=== PATIENT | male | born 1945 | race Caucasian/White ===

== ENCOUNTER → 2018-07-30 14:33 | Outpatient (BNVA) | payer MEDICARE, OTHER, SELFPAY | PROVIDERS: PCP Internal Medicine; Referring Provider Internal Medicine; Visit Provider Orthopaedic Surgery | DX: M25.551 Pain in right hip (principal) | CPT/HCPCS: 20610; 99211; 99213; J1040 ==

== ENCOUNTER 2018-11-06 11:14 | Outpatient (CLI) | payer MEDICARE, OTHER, SELFPAY ==
--- NOTE | 2018-11-06 10:00 | DI.RAD_ITS ---
SYMPTOM/DIAGNOSIS: ACUTE RT HIP PAIN AP PELVIS: No priors. No acute fracture or dislocation is seen. There are mild to moderate degenerative changes seen in the lower lumbar spine. The sacroiliac joints show mild degenerative changes. The symphysis pubis is intact. Mild degenerative changes are seen in the hips bilaterally. The soft tissues are grossly unremarkable. IMPRESSION: No acute fracture or dislocation.
== END 2018-11-06 11:34 ==
PROVIDERS: PCP Internal Medicine; Visit Provider Orthopaedic Surgery
DX: M25.551 Pain in right hip (principal); M16.0 Bilateral primary osteoarthritis of hip
CPT/HCPCS: 72170

== ENCOUNTER → 2018-11-08 08:34 | Outpatient (BNVA) | payer MEDICARE, OTHER, SELFPAY | PROVIDERS: PCP Internal Medicine; Referring Provider Internal Medicine; Visit Provider Orthopaedic Surgery | DX: M25.551 Pain in right hip (principal) | CPT/HCPCS: 99211; 99213 ==

== ENCOUNTER 2018-11-14 00:42 | Outpatient (CLI) | payer MEDICARE, OTHER, SELFPAY ==
--- NOTE | 2018-11-14 06:51 | DI.RAD_ITS ---
SYMPTOMS/DIAGNOSIS: RIGHT HIP PAIN, DEGENERATIVE JOINT DISEASE OF RIGHT HIP, M16.11, PRIMARY OSTEOARTHRITIS RIGHT HIP INJECTION: Fluoroscopy Time: 1.2 sec Fluoroscopy was utilized by Dr. Jones during the performance of a right hip injection. Please refer to the procedure report for complete details.
--- NOTE | 2018-11-14 10:06 | ROE_ITS ---
PROCEDURE NOTE DATE OF PROCEDURE November 14, 2018 PROCEDURE PERFORMED Injection right hip under fluoroscopy. SURGEON Epifanio Jones M.D. INDICATIONS Mr. Mckeon has had pain in his right hip and groin for the past several months. It began insidiously in July of 2018 with no history of trauma. After three to four weeks, he came to see me and he had s elf-diagnosed the problem as trochanteric bursitis. His exam was not compatible with that, but I trie d an injection in his trochanteric bursa without much benefit. His symptoms gradually got better on t heir own, and he was doing well playing tennis and gardening until approximately eight days ago, when he developed the same onset of symptoms after getting up while watching tennis on television and goi ng out into his garden. Again, there was no history of trauma. He was seen in the office a week ago and had an x-ray done approximately eight days ago, which did no t show any obvious pathology with either hip joint. There was also some evidence of degenerative disk disease of the lumbar spine, especially on the right side. His exam was compatible with possible int raarticular pathology of the right hip, but I felt more likely, it was related to some type of nerve root compression on his spine. However, his exam including straight leg raises, and neurologic testin g of the motor and sensory units of the right lower extremity were unremarkable. Today, he reports that he does have some tingling in his lower leg to the point where he thought he m ight have ticks crawling up his leg, and that was not the case. He has not really improved in the last week. I had discussed with him the possibility of injecting in to his hip under fluoroscopy to verify or not, that the hip joint was the source of his pathology. I explained to him the rationale for this. After he thought about it for few days, he decided to procee d with that. DESCRIPTION OF PROCEDURE The patient was brought to the Fluoroscopy Suite. I reviewed the planned procedure with him. He was p laced on the fluoroscopic table. The anterolateral portion of his right thigh was then prepped with C hloraPrep. 1% lidocaine was then used to create an anesthetic wheal with a #25-guage needle over the proposed insertion site of spinal needle. After waiting a few minutes for the lidocaine to work, I then placed a #22-guage spinal needle, under fluoroscopic control past the intertrochanteric line hitting a bone over the femoral neck. I then in jected the hip joint with a combination of 80 mg of Depo-Medrol and 6 cc of 0.5% Marcaine plain. The patient tolerated the injection well. He did not notice any immediate change in his symptoms. He still complained of some groin pain. Lying on his left side, which was causing him pain in the right groin, before the procedure was somewhat b manda, however, there was no dramatic change in his presymptom groin pain. I told him to keep a mental diary of his symptoms over the next five to six hours while the Marcaine was in effect. He could then anticipate a possible steroid flare and increasing pain over 24 to 48 ho urs and then should notice improvement because of the beneficial effect of the steroid. His hip motion remained unrestricted. I had him do a step up on a stair, which did not seem to bother him either before or after the injection. But, he felt that he was feeling some groin pain in that h e had to sit even after the injection. This tended to indicate to me that the problem might be coming from the lumbar spine rather than the hip joint. PLAN He will contact me in 48 hours and let me know how he is doing. The next part in the examination woul d be an MRI of his lumbar spine and his hip joint.
== END 2018-11-14 01:02 ==
PROVIDERS: PCP Internal Medicine; Visit Provider Orthopaedic Surgery
DX: M16.11 Unilateral primary osteoarthritis, right hip (principal); M25.551 Pain in right hip
CPT/HCPCS: 20610; 77002

== ENCOUNTER 2018-11-23 02:25 | Outpatient (CLI) | payer MEDICARE, OTHER, SELFPAY ==
--- NOTE | 2018-11-23 07:56 | DI.MRI_ITS ---
SYMPTOM/DIAGNOSIS: R/O NERVE ROOT COMPRESSION M25.551 RT HIP PAIN M54.5 LBP MRI LUMBAR SPINE: Routine noncontrast examination was performed. No priors for comparison. The conus medullaris has a normal appearance and location. At L5-S1, there is disc desiccation. There is a central disc protrusion. There are hypertrophic changes of the facets. There is mild narrowing of the central spinal canal. Moderately severe left neuroforaminal stenosis is seen. No significant white neural foraminal stenosis is present. At L4-L5, there is disc desiccation. End plate degenerative signal changes are present. There is a diffuse protrusion present. There are hypertrophic changes of the facets and ligamentum flavum causing moderately severe central canal stenosis. There is moderately severe right neural foraminal stenosis and moderate left neuroforaminal stenosis. At L3-L4, there is disc desiccation. There are degenerative end plate signal changes. There is a diffuse disc bulge. There is a small right paracentral disc herniation. There are hypertrophic changes of the facets. The findings result in moderately severe central spinal canal stenosis. There is moderately severe right neuroforaminal stenosis and moderate left neuroforaminal stenosis. At L2-L3, there is disc desiccation. There are end plate degenerative signal changes. There is a diffuse disc bulge. There are degenerative changes of the facets resulting in mild narrowing of the central spinal canal. There is mild narrowing of the right neural foramen and moderate narrowing of the left neural foramen. At L1-L2, there is disc desiccation. End plate degenerative signal changes are present. There is a diffuse disc bulge. Mild narrowing of the central spinal canal results. No significant right or left neuroforaminal stenosis is present. Incidental note is made of a 1.3 cm simple cyst on the right ovary. IMPRESSION: Severe degenerative changes throughout the lumbar spine resulting in multi-level central spinal canal and neuroforaminal stenosis. Small right paracentral disc herniation at L3-L4. This in conjunction with the degenerative changes causes central spinal canal stenosis.
--- NOTE | 2018-11-23 07:56 | DI.MRI_ITS ---
SYMPTOM/DIAGNOSIS: RIGHT HIP PAIN M25.551 MRI RIGHT HIP: Routine noncontrast examination was performed. Marrow signal is within normal limits. No evidence of an occult fracture or avascular necrosis is present. The labrum appears grossly unremarkable on this noncontrast examination. The muscles and tendons appear grossly unremarkable. No evidence of a soft tissue mass or foal fluid collection is appreciated. Normal amount of fluid is seen within the joint space. IMPRESSION: No acute abnormality.
== END 2018-11-23 02:45 ==
PROVIDERS: PCP Internal Medicine; Visit Provider Orthopaedic Surgery
DX: M25.551 Pain in right hip (principal); M54.5 Low back pain; M51.26 Other intervertebral disc displacement, lumbar region; M47.816 Spondylosis without myelopathy or radiculopathy, lumbar region; M48.061 Spinal stenosis, lumbar region without neurogenic claudication
CPT/HCPCS: 73721; 72148

== ENCOUNTER → 2018-11-29 08:54 | Outpatient (BNVA) | payer MEDICARE, OTHER, SELFPAY | PROVIDERS: PCP Internal Medicine; Referring Provider Internal Medicine; Visit Provider Orthopaedic Surgery | DX: M48.062 Spinal stenosis, lumbar region with neurogenic claudication (principal); Z98.890 Other specified postprocedural states | CPT/HCPCS: 99212 ==

== ENCOUNTER → 2018-11-30 13:59 | Outpatient (BNVA) | payer MEDICARE, OTHER, SELFPAY | PROVIDERS: PCP Internal Medicine; Visit Provider Internal Medicine Cardiovascular Disease | DX: I48.0 Paroxysmal atrial fibrillation (principal) | CPT/HCPCS: 99214 ==

== ENCOUNTER 2018-11-30 14:12 | Outpatient (CLI) | payer MEDICARE, OTHER, SELFPAY | END 2018-11-30 14:32 | PROVIDERS: PCP Internal Medicine; Visit Provider Internal Medicine Cardiovascular Disease | DX: I48.0 Paroxysmal atrial fibrillation (principal) | CPT/HCPCS: 99214; 93005; 93010 ==

== ENCOUNTER 2018-12-21 09:37 | Outpatient (CLI) | payer MEDICARE, OTHER, SELFPAY | END 2018-12-21 09:57 | PROVIDERS: PCP Internal Medicine; Visit Provider Internal Medicine Cardiovascular Disease | DX: I48.0 Paroxysmal atrial fibrillation (principal); Z79.01 Long term (current) use of anticoagulants | CPT/HCPCS: 99214; 93005; 93010 ==

== ENCOUNTER 2019-01-11 07:53 | Day surgery (SDC) | payer MEDICARE, OTHER, SELFPAY ==
[2019-01-11 08:00] VITALS: BP 120/79; PULSE 79; RESP 16; TEMP 36.3; O2SAT 97
[2019-01-11] MEDS: Normal Saline 1,000 ML 30 ML IV (08:35)
--- NOTE | 2019-01-11 09:49 | W.CARDVER ---
Date of service: 01/11/19 Time of Service: 09:49 Cardioversion Elective admission for electrical cardioversion. Known atrial fibrillation. Preprocedure EKG reveals atrial fibrillation with a ventricular rate of 80 bpm. Patient adequately anticoagulated. Informed consent obtained. Patient hemodynamically monitored throughout procedure. Anesthesia and nursing present. Sedation as per anesthesia. Cardioversion pads placed in the dolly-posterior orientation. 200 J synchronized cardioversion. Remains in A. fib after the first attempt. Second attempt. Unsuccessful. Patient remains in atrial fibrillation. No complications. We will get a 12-lead EKG. Patient to continue diltiazem and metoprolol as prescribed. Continue anticoagulation for 30 days. To be reviewed in the clinic in 4 weeks time.
[2019-01-11 10:05] VITALS: BP 107/78; PULSE 72; RESP 16; TEMP 36.4; O2SAT 95
[2019-01-11 10:20] VITALS: BP 116/85; PULSE 75; RESP 16; TEMP 36.4; O2SAT 95
[2019-01-11 10:35] VITALS: BP 116/81; PULSE 74; RESP 16; TEMP 36.3; O2SAT 96
== END 2019-01-11 10:55 | disposition home or self-care (01) ==
PROVIDERS: PCP Internal Medicine; Visit Provider Internal Medicine Cardiovascular Disease
PROC: 5A2204Z Restoration of Cardiac Rhythm, Single (ICD-10-PCS; CPT 92960; principal; 2019-01-11 09:30)
DX: I48.91 Unspecified atrial fibrillation (principal)
CPT/HCPCS: 92960

== ENCOUNTER 2019-02-07 09:02 | Outpatient (CLI) | payer MEDICARE, OTHER, SELFPAY | END 2019-02-07 09:22 | PROVIDERS: PCP Internal Medicine; Visit Provider Internal Medicine Cardiovascular Disease | DX: I48.19 Other persistent atrial fibrillation (principal); Z79.01 Long term (current) use of anticoagulants | CPT/HCPCS: 99204; 99215; 93005; 93010 ==

== ENCOUNTER 2019-03-04 01:13 | Outpatient (CLI) | payer MEDICARE, OTHER, SELFPAY ==
--- NOTE | 2019-03-04 13:58 | DI.US_ITS ---
APPROVED REPORT EXAM: Comprehensive 2D, Doppler, and color-flow Echocardiogram Patient Location: Out-Patient Online Media Buyer: Lena Calderon [facility] ([place]) Rhythm: Atrial Fibrillation, Tachycardia Indications: atrial fibrillation i48.0 Conclusion Left Ventricle : The left ventricle is normal size. The left ventricular systolic function is normal. Mild to moderate concentric left ventricular hypertrophy. There is normal LV segmental wall motion. LVEF is estimated to be 60-65%. Diastolic function is indeterminate Right Ventricle : Right ventricle is mildly dilated. The right ventricular systolic function is low n ormal. Atria : Left atrium is moderately dilated. Right atrium is moderately dilated. Aortic Valve : Aortic valve is trileaflet. The Aortic valve is mildly sclerotic. There is no aortic v alvular stenosis. No aortic regurgitation is present. Mitral Valve : Mitral valve leaflets are mildly thickened. No evidence of mitral valve stenosis. Trac e to mild mitral regurgitation. Tricuspid Valve : The tricuspid valve leaflets are mildly thickened , but open well. Mild tricuspid regurgitation. Pulmonic Valve : Pulmonic valve is not well visualized. Great Vessels : The IVC is dilated and collapses >50% with inspiration. RVSP is estimated to be 18-2 1 mmHg. There is no prior echocardiogram available for comparison. Wall motion Left Ventricle The left ventricle is normal size. The left ventricular systolic function is normal. Mild to moderate concentric left ventricular hypertrophy. There is normal LV segmental wall motion. Diastolic functio n is indeterminate LVEF is estimated to be 60-65%. Right Ventricle Right ventricle is mildly dilated. The right ventricular systolic function is low normal. Atria Left atrium is moderately dilated. Right atrium is moderately dilated. Aortic Valve Aortic valve is trileaflet. The Aortic valve is mildly sclerotic. There is no aortic valvular stenosi s. No aortic regurgitation is present. Mitral Valve Mitral valve leaflets are mildly thickened. No evidence of mitral valve stenosis. Trace to mild nathen l regurgitation. Tricuspid Valve The tricuspid valve leaflets are mildly thickened , but open well. Mild tricuspid regurgitation. Pulmonic Valve Pulmonic valve is not well visualized. Mild pulmonic regurgitation. Great Vessels Aortic root is dilated. The ascending aorta is mildly dilated. The IVC is dilated and collapses >50% with inspiration. RVSP is estimated to be 18-21 mmHg. Pericardium There is no pericardial effusion. 2D Dimensions IVSd 1.35 cm M: 0.6-1.2 LV EDV A2C 77.10 mL PWd 1.34 cm M: 0.6 - 1.2 LV EDV A4C 82.40 mL LVDd 4.57 cm M: 4.2 - 5.9 LA Volume Index A2C 40.59 mL/m2 LVDs 3.34 cm M: 2.5 - 4.0 LA Volume Index A4C 59.21 mL/m2 Aortic Root 3.76 cm M: 3.1 - 3.7 LA Volume Index Biplane 50.70 mL/m2 RA Area A4C 28.10 cm2 LA Area A4C 30.77 cm2 LVOT 2.23 cm (M/F) 1.5-2.5 LA Area A2C 24.64 cm2 Ascending Aorta 3.59 cm M: 2.6 - 3.4 EF AP4 64.56 % LVEF (Teich) 52.68 % EF AP2 62.65 % LVEF (Oconnor's) 62.34 % M: 52 - 72 EF BP 62.34 % LV Volume 61.70 mL M: 62 - 150 LV Volume Index 30.54 mL/m2 M: 34 - 74 FS 26.97 % LV Diastology E Decel Time 123.00 (160-240 msec) MED E' 0.08 (>0.07 m/s) LV E/e MED 8.20 (<14) LAT E' 0.09 (>0.1 m/s) LV E/e LAT 7.24 (<14) Aortic Valve LVOT Area 3.91 cm2 LVOT Peak Ravindra. 0.65 m/s LVOT Mean Ravindra. 0.49 m/s LVOT Peak Gr. 1.69 mmHg ZANA Vmax Index 1.52 cm2/m2 LVOT Mean Gr. 1.09 mmHg LVOT VTI 0.11 m ZANA Mean Ravindra. Index 1.38 cm2/m2 AoV Peak Ravindra. 0.83 (0.5-1.3 m/s) AoV Mean Ravindra. 0.69 m/s AO Peak GR. 2.74 mmHg AO Mean GR. 1.97 (<5 mmHg) AO VTI 0.14 (0.18-0.25 m) VTI Ratio 0.77 ZANA (VTI) 3.03 (2.5-4.5 cm2) ZANA (VTI) Index 1.50 cm/m2 Mitral Valve MV E Max Ravindra. 0.67 (0.4-1.3 m/s) MVA VTI 6.80 (4.0-6.0 cm2) MV Decel. Time 123.00 (160-240 msec) MV PHT 35.53 msec MVA PHT 6.19 cm2 Tricuspid Valve TR P. Velocity 2.17 m/s TV Regurg Vmax 2.17 m/s RVSP 26.82 mmHg TR P. Gradient 18.82 mmHg
== END 2019-03-04 01:33 ==
PROVIDERS: PCP Internal Medicine; Visit Provider Internal Medicine Cardiovascular Disease
DX: I48.0 Paroxysmal atrial fibrillation (principal); I51.7 Cardiomegaly; I35.8 Other nonrheumatic aortic valve disorders
CPT/HCPCS: 93306

== ENCOUNTER → 2019-05-06 13:12 | Outpatient (BNVA) | payer MEDICARE, OTHER, SELFPAY | PROVIDERS: PCP Internal Medicine; Referring Provider Internal Medicine; Visit Provider Internal Medicine Cardiovascular Disease | DX: I48.20 Chronic atrial fibrillation, unspecified (principal) | CPT/HCPCS: 99214 ==

== ENCOUNTER → 2019-10-01 12:41 | Outpatient (BNVA) | payer MEDICARE, OTHER, SELFPAY | PROVIDERS: PCP Internal Medicine; Referring Provider Internal Medicine; Visit Provider Internal Medicine Cardiovascular Disease | DX: I48.91 Unspecified atrial fibrillation (principal) | CPT/HCPCS: 99214 ==

== ENCOUNTER 2019-12-04 16:31 | Emergency (ER) | payer MEDICARE, OTHER, SELFPAY ==
[2019-12-04 16:39] VITALS: BP 152/98; PULSE 97; TEMP 37; O2SAT 97
--- NOTE | 2019-12-04 17:43 | W.ED.GENAD ---
Discharge Plan Disposition Patient Disposition: HOME Condition: Stable Discharge Details Chief Complaint: Laceration Clinical Impression: Cellulitis Primary Care Provider: Jitendra Whitfield ED Provider: Anton Ramos Home Meds and New Rx's Prescriptions: New cephalexin [Keflex] 500 mg capsule 500 mg PO QID 10 Days Qty: 40 RF: 0 Continued sildenafil [Viagra] 50 mg tablet 50 mg PO DAILY PRN (Reason: sexual activity) Qty: 10 RF: 3 diltiazem HCl 360 mg capsule,extended release 24hr 360 mg PO DAILY 90 Days Qty: 90 RF: 3 Eliquis 5 mg tablet 5 mg PO BID 30 Days Qty: 180 RF: 6 metoprolol succinate 50 mg tablet extended release 24 hr 50 mg PO DAILY 30 Days Qty: 90 RF: 6 mesalamine [Asacol HD] 800 mg tablet,delayed release (DR/EC) 800 mg PO .6XPER DAY RF: 0 Discharge Instructions Instructions: Cellulitis (ED) Additional Instructions: Keflex as directed. Rest, elevate, warm compresses every 2 hours for 20 minutes. Keep the area clean and dry, change antibiotic dressing daily. Please watch for new or worsening symptoms and return to the ER for any concerns. Medical Decision Making 73-year-old gentleman presents after hitting his right lower extremity with a stick, now the area appears to be infected. Today we will update his tetanus status. Will clean and dress the wound. Given the nature of a potential puncture, will obtain x-ray to evaluate any potential foreign body and/or additional injury. X-ray read by virtual radiology as no acute fracture or dislocation. Soft tissue emphysema medially this is likely related to the patient's known trauma. Findings with patient. He has no additional questions or concerns and is comfortable discharge. Will place him on 10 days of Keflex. We discussed the importance of keeping the area clean, dry, changing antibiotic dressing, resting, elevating and warm compresses. He was encouraged to follow-up with his primary care provider, contacting them tomorrow, or returning to the ER for new or evolving symptoms. Medical Records Medical records reviewed: Yes I reviewed the patient's medical records. HPI General Mode of arrival: ambulatory. Date/Time Provider Initiated Documentation: 12/04/19 16:44. Limitations to Documentation: no limitations. Information obtained by: patient. HPI Narrative: This is a 73-year-old gentleman with history of atrial fibrillation, takes apixaban, history of ulcerative colitis, presenting for evaluation of the right lower leg injury. Reports that he was out doing yard work, walked into a stick and it poked his right leg sustaining a small abrasion-laceration. Over the past 2 days the area has become increasingly red, mild swelling and drainage. He denies any other injury. Denies fever, numbness, tingling, weakness. Tetanus was last updated in 2013. Related Data Home Medications Medication Instructions Recorded Confirmed sildenafil 50 mg tablet 50 mg PO DAILY PRN #10 tab 11/30/18 12/04/19 apixaban 5 mg tablet 5 mg PO BID 30 Days #180 tab 05/23/19 12/04/19 diltiazem HCl 360 mg 360 mg PO DAILY 90 Days #90 cap 05/23/19 12/04/19 capsule,extended release 24 hr metoprolol succinate 50 mg 50 mg PO DAILY 30 Days #90 tab 05/23/19 12/04/19 tablet,extended release 24 hr mesalamine 800 mg tablet,delayed 800 mg PO .6XPER DAY 10/01/19 12/04/19 release cephalexin [Keflex] 500 mg PO QID 10 Days #40 cap 12/04/19 Previous Rx's Medication Instructions Recorded sildenafil 50 mg tablet 50 mg PO DAILY PRN #10 tab 11/30/18 apixaban 5 mg tablet 5 mg PO BID 30 Days #180 tab 05/23/19 diltiazem HCl 360 mg 360 mg PO DAILY 90 Days #90 cap 05/23/19 capsule,extended release 24 hr metoprolol succinate 50 mg 50 mg PO DAILY 30 Days #90 tab 05/23/19 tablet,extended release 24 hr cephalexin [Keflex] 500 mg PO QID 10 Days #40 cap 12/04/19 Allergies Allergy/AdvReac Type Severity Reaction Status Date / Time No Known Allergies Allergy Verified 12/04/19 17:00 General Stated Complaint: Laceration LANDON: 4 Review of Systems Constitutional Constitutional: Denies fever(s) and Denies weakness Musculoskeletal Musculoskeletal: Denies arthralgias, Denies numbness and Denies tingling Integumentary/Breasts Skin/Breast: Reports erythema Neurologic Neurologic: Denies numbness, Denies tingling and Denies weakness [facility] Medical History Atrial fibrillation (Chronic) Ulcerative colitis (Chronic) Surgical History History of colonoscopy (Chronic) History of shoulder surgery (Chronic) Family History Other Cancer Heart disease Hypertension Social History Smoking/Tobacco Use Status: Never Drug use: Never Substance use type: does not use Do you feel safe at home: Yes Do you feel safe in your relationship?: Yes Exam Const General: cooperative, healthy appearing, comfortable and no acute distress Orientation: alert and awake HENFL Head: normal to inspection, normocephalic and atraumatic Eyes Conjunctivae: conjunctivae normal Sclera: sclerae normal Neck Neck: normal visual inspection, trachea midline and supple Resp Effort & Inspection: normal respiratory effort and able to speak in complete sentences Skin General skin exam: no rashes or lesions noted Neuro General: patient alert, patient awake, moves all extremities and no focal motor deficits Sensory Exam: no sensory deficits noted Extrem General: full ROM, capillary refill normal, no pedal edema, no calf tenderness and normal gait Upper/lower leg/hip images: 1. Centrally there is a 0.5 cm [id number]. Expanding in all directions approximately 2-1/2 cm, there is macular erythema. The area is with mild warmth, tenderness to palpation. There is no induration, fluctuance, pointing abscess, or active draining. The erythema is noncircumferential. Psych Appearance: grossly normal Mental Status: mental status grossly normal Course Vital Signs Vital signs: Vital Signs Temperature 37.0 C 12/04/19 16:39 Pulse 97 H 12/04/19 16:39 Blood Pressure 152/98 H 12/04/19 16:39 Pulse Oximetry 97 12/04/19 16:39 Temperature 37.0 C 12/04/19 16:39 Temperature Source Tympanic 12/04/19 16:39 Pulse 97 H 12/04/19 16:39 Respiratory Effort 12/04/19 16:58 Blood Pressure 152/98 H 12/04/19 16:39 Blood Pressure Position Sitting 12/04/19 16:39 Pulse Oximetry 97 12/04/19 16:39 Oxygen Delivery Method Room Air 12/04/19 16:39 Oxygen Flow Rate 0 12/04/19 16:39 Pain Level 0 12/04/19 16:39
--- NOTE | 2019-12-04 17:50 | DI.RAD_ITS ---
EXAM: XR TIB/FIB RT CLINICAL HISTORY: Laceration-puncture wound 2 days ago, cellulitis. TECHNIQUE: 2D digital imaging was performed. COMPARISON: No exams were available for comparison FINDINGS: BONES: No acute fracture is present. No bony destructive lesion is seen. Visualized portion of knee a nd ankle joints are unremarkable. SOFT TISSUE: No radiopaque foreign body. A BB was placed in the area of concern. IMPRESSION: No radiopaque foreign body, fracture or dislocation. DATA REPOSITORY: RADIATION DOSE DELIVERED:
--- NOTE | 2019-12-04 17:56 | DI.VRAD_ITS ---
PROCEDURE INFORMATION: Exam: XR Right Tibia and Fibula Exam date and time: 12/04/2019 5:46 PM Age: 73 years old Clinical indication: Injury or trauma; Injury history: Puncture wound; Initial encounter; Swelling (edema); Lower leg; Right TECHNIQUE: Imaging protocol: XR Right tibia and fibula. Views: 2 views. COMPARISON: No relevant prior studies available. FINDINGS: Bones/joints: No acute fracture or dislocation. Soft tissues: Soft tissue emphysema medially. This is likely related to the patient's known trauma. IMPRESSION: No acute fracture or dislocation. Soft tissue emphysema likely related to the trauma. Dictated and Authenticated by: Harman Parekh MD. Ordering:CARLOS Walton MD
== END 2019-12-04 18:09 | disposition home or self-care (01) ==
PROVIDERS: Emergency Provider Physician Assistant; PCP Internal Medicine
DX: L03.115 Cellulitis of right lower limb (principal); S81.831A Puncture wound without foreign body, right lower leg, initial encounter; W26.8XXA Contact with other sharp object(s), not elsewhere classified, initial encounter; Y93.H2 Activity, gardening and landscaping; I48.0 Paroxysmal atrial fibrillation; Z79.01 Long term (current) use of anticoagulants
CPT/HCPCS: 90471; 99284; 73590; 99283

== ENCOUNTER 2020-01-04 08:58 | Emergency (ER) | payer MEDICARE, OTHER, SELFPAY ==
[2020-01-04 09:04] VITALS: BP 123/79; PULSE 82; RESP 20; TEMP 36.4; O2SAT 97
--- NOTE | 2020-01-04 09:31 | ED.GENADUL_ITS ---
Discharge Plan Disposition Patient Disposition: HOME Condition: Good Discharge Details Clinical Impression: Abrasion of cornea, left Primary Care Provider: Jitendra Whitfield ED Provider: Dillon Johns Home Meds and New Rx's Prescriptions: Continued sildenafil [Viagra] 50 mg tablet 50 mg PO DAILY PRN (Reason: sexual activity) Qty: 10 RF: 3 diltiazem HCl 360 mg capsule,extended release 24hr 360 mg PO DAILY 90 Days Qty: 90 RF: 3 Eliquis 5 mg tablet 5 mg PO BID 30 Days Qty: 180 RF: 6 metoprolol succinate 50 mg tablet extended release 24 hr 50 mg PO DAILY 30 Days Qty: 90 RF: 6 mesalamine [Asacol HD] 800 mg tablet,delayed release (DR/EC) 800 mg PO .6XPER DAY RF: 0 Discharge Instructions Instructions: Corneal Abrasion (ED) Additional Instructions: At this time you have a mild corneal abrasion of your left eye. Please apply the antibiotic ointment erythromycin 3 times per day and a thin strip. At this time I do not see any evidence of a retained eyelash or other abnormality under the lids. You have a small nodule in the upper lid on the for the most left side, but this does not appear to be related. Please follow-up closely with the eye doctor Dr. Astudillo. If you notice any worsening of your symptoms, or any new symptoms such as v worsening vision, worsening eye pain, omiting, diarrhea, fever, chills, shortness of breath, chest pain, numbness, weakness, or fainting , please return immediately to the emergency department for reevaluation. As always, it was a pleasure participating in your medical care today. Referrals: [facility] [Outside] Medical Decision Making 74-year-old male with past medical history of atrial fibrillation on Eliquis, hypertension, presents today for evaluation of left eye irritation. Patient states that about 36 to 48 hours ago he developed an irritation in the left eye which she describes as michael/gritty feeling. It is in the 10 o'clock position extending over to the 1 o'clock position from the perspective of the patient. He feels that the pain comes and goes, and is mild in nature. He does not recall any welding, woodworking, or getting any foreign body in his eye. He has been taking his medications well. He denies any pressure sensation in his eye or trauma. No other complaints at this time. No other modifying factors. Physical exam demonstrates a small corneal abrasion, no evidence of retained lash, or other abnormality. Negative Dina sign. The abrasion actually appears to be healing well, with no signs of ulceration. Patient is not a contact lens wear. Will give erythromycin ointment for ease of symptoms, and recommend close follow-up with optometry on an outpatient basis. I have extensively reviewed the treatment plan and discharge instructions with the patient. I have addressed all patient concerns at this time. The patient was made aware of what symptoms to monitor for that would warrant a return to the emergency department. Discussed the plan with the patient, they demonstrate verbal understanding and agreement with our assessment and plan at this time. HPI General Date/Time Provider Initiated Documentation: 01/04/20 09:12 . HPI Narrative: 74-year-old male with past medical history of atrial fibrillation on Eliquis, hypertension, presents today for evaluation of left eye irritation. Patient states that about 36 to 48 hours ago he developed an irritation in the left eye which she describes as michael/gritty feeling. It is in the 10 o'clock position extending over to the 1 o'clock position from the perspective of the patient. He feels that the pain comes and goes, and is mild in nature. He does not recall any welding, woodworking, or getting any foreign body in his eye. He has been taking his medications well. He denies any pressure sensation in his eye or trauma. No other complaints at this time. No other modifying factors. Related Data Home Medications Medication Instructions Recorded Confirmed sildenafil 50 mg tablet 50 mg PO DAILY PRN #10 tab 11/30/18 01/04/20 apixaban 5 mg tablet 5 mg PO BID 30 Days #180 tab 05/23/19 01/04/20 diltiazem HCl 360 mg 360 mg PO DAILY 90 Days #90 cap 05/23/19 01/04/20 capsule,extended release 24 hr metoprolol succinate 50 mg 50 mg PO DAILY 30 Days #90 tab 05/23/19 01/04/20 tablet,extended release 24 hr mesalamine 800 mg tablet,delayed 800 mg PO .6X DAY 10/01/19 01/04/20 release Previous Rx's Medication Instructions Recorded sildenafil 50 mg tablet 50 mg PO DAILY PRN #10 tab 11/30/18 apixaban 5 mg tablet 5 mg PO BID 30 Days #180 tab 05/23/19 diltiazem HCl 360 mg 360 mg PO DAILY 90 Days #90 cap 05/23/19 capsule,extended release 24 hr metoprolol succinate 50 mg 50 mg PO DAILY 30 Days #90 tab 05/23/19 tablet,extended release 24 hr Allergies Allergy/AdvReac Type Severity Reaction Status Date / Time No Known Allergies Allergy Verified 01/04/20 09:06 General Stated Complaint: EyeProblem LANDON: 4 Review of Systems All systems reviewed & are unremarkable except as noted in HPI and below PFSH Medical History Atrial fibrillation Ulcerative colitis Surgical History History of colonoscopy History of shoulder surgery Family History Other Cancer Heart disease Hypertension Social History Smoking/Tobacco Use Status: Never Drug use: Never Substance use type: does not use Do you feel safe at home: Yes Do you feel safe in your relationship?: Yes Exam Narrative Exam Narrative: 1.Const: Well-nourished, Well-developed, appearing stated age 2.Eyes: Left eye: EOMI, PERRL, Peripheral vision intact. No nystagmus. No clinical signs of septal/orbital cellulitis, no significant redness around the eye, no proptosis. No hyphema, no signs of trauma around the eye, no periorbital emphysema. No sluggishness of the pupil. No ophthalmoplegia. No afferent pupillary defect. Fluorescein exam is positive for corneal abrasion in the 10 o'clock position to the patient with a slight irritation line medially towards the 1 o'clock position, negative Dina sign. Visual acuity is without significant difference. Eversion of the lids demonstrates no evidence of retain ed foreign body, lash, or other abnormality. There is no evidence of a very small nodule in the upper lid on the left lateral aspect of the left eye, this does not appear to be related to the corneal abrasion. 3.ENT: Atraumatic external nose and ears. Moist MM. Neck: Symmetric, trachea midline, No thyromegaly. 4.CVS: +S1/S2, No murmurs or gallops. Peripheral pulses 2+ and equal in all extremities. Brisk capillary refill in all extremities. 5.RESP: Unlabored respiratory effort. Clear to auscultation bilaterally. No wheezes rales or rhonchi 6.GI: Soft, Nontender/Nondistended, No hepatosplenomegaly. No guarding or rebound. 7.MSK: Normocephalic/Atraumatic, Extremities w/o deformity or ttp No cyanosis or clubbing, Normal movement of all extremities 8.Skin: Warm, Dry. No rashes or lesions. 9.Neuro: burner shaft II-XII grossly intact. Sensation grossly intact, no focal neurologic deficits. 10.Psych: (AAO) x3. Appropriate mood and affect Course Vital Signs Vital signs: Vital Signs Temperature 36.4 C L 01/04/20 09:04 Pulse 82 01/04/20 09:04 Respiratory Rate 01/04/20 09:04 Blood Pressure 123/79 01/04/20 09:04 Pulse Oximetry 97 01/04/20 09:04 Temperature 36.4 C L 01/04/20 09:04 Temperature Source Skin 01/04/20 09:04 Pulse 82 01/04/20 09:04 Respiratory Rate 01/04/20 09:04 Respiratory Effort Non-Labored 01/04/20 09:07 Blood Pressure 123/79 01/04/20 09:04 Blood Pressure Position Sitting 01/04/20 09:04 Pulse Oximetry 97 01/04/20 09:04 Oxygen Delivery Method Room Air 01/04/20 09:04 Oxygen Flow Rate 0 01/04/20 09:04 Pain Level 1 01/04/20 09:04
[2020-01-04] MEDS: Erythromycin Ophth Oint 3.5 GM TUBE OS (09:35)
[2020-01-04] MEDS: Fluorescein STRIPS 100/BOX 1 MG (09:36)
[2020-01-04] MEDS: Tetracaine 0.5% 4 ML BTL (09:36)
== END 2020-01-04 09:37 | disposition home or self-care (01) ==
PROVIDERS: Emergency Provider Student in an Organized Health Care Education/Training Program; PCP Internal Medicine
DX: S05.02XA Injury of conjunctiva and corneal abrasion without foreign body, left eye, initial encounter (principal); X58.XXXA Exposure to other specified factors, initial encounter; I10 Essential (primary) hypertension
CPT/HCPCS: 99283

== ENCOUNTER 2020-01-27 14:47 | Outpatient (REF) | payer MEDICARE, OTHER, SELFPAY ==
[2020-01-27 21:20] LABS: HCT 49.6 % (40.0-50.0); HGB 16.4 g/dL (13.5-17.5); MCH 31.1 pg (27.0-33.0); MCHC 33.1 % (32.0-36.0); MCV 94.1 fL (80-95); MPV 11.8 fL (8.0-11.0); Platelet Count 166 10^3/uL (130-400); RBC 5.27 10^6/uL (4.36-5.78); RDW 14.1 % (11.8-14.1); RDW-SD 48.7 fL; WBC 7.24 10^3/uL (4.4-10.8)
[2020-01-27 21:47] LABS: ALT 29 U/L (16-63); AST 23 U/L (15-37); Albumin 3.6 g/dL (3.4-5.0); Alkaline Phosphatase 74 U/L (46-116); Anion Gap 5.5 mmol/L (3-11); BUN 15 mg/dL (7-18); Bilirubin, Total 0.5 mg/dL (0.2-1.0); CO2 29.5 mmol/L (21.0-32.0); CREATININE 1.17 mg/dL (0.70-1.30); Calculated LDL 106 mg/dL (<100); Chloride 106 mmol/L (98-107); Cholesterol 202 mg/dL (<200); Glucose 88 mg/dL (74-106); HDL Cholesterol 64 mg/dL (40-60); Potassium 4.2 mmol/L (3.5-5.1); Sodium 141 mmol/L (136-145); Triglyceride 162 mg/dL (<150)
== END 2020-01-27 15:07 ==
LOC: NCHCN 14:47
PROVIDERS: PCP Internal Medicine
DX: I48.91 Unspecified atrial fibrillation (principal); I10 Essential (primary) hypertension; Z13.6 Encounter for screening for cardiovascular disorders
CPT/HCPCS: 80053; 80061; 85027

== ENCOUNTER → 2020-02-24 15:46 | Outpatient (BNVA) | payer MEDICARE, OTHER, SELFPAY | PROVIDERS: PCP Internal Medicine; Referring Provider Internal Medicine; Visit Provider Student in an Organized Health Care Education/Training Program | DX: M72.0 Palmar fascial fibromatosis [Dupuytren] (principal) | CPT/HCPCS: 99203; 99214 ==

== ENCOUNTER 2020-03-03 07:54 | Outpatient (CLI) | payer MEDICARE, OTHER, SELFPAY ==
[2020-03-04 12:34] LABS: SARS-CoV-2 RNA Not Detected (NotDetected); SARS-CoV-2 RNA Source Nasal/Nares
== END 2020-03-03 08:14 ==
PROVIDERS: PCP Internal Medicine; Visit Provider Nurse Practitioner
DX: Z11.59 Encounter for screening for other viral diseases (principal); Z01.818 Encounter for other preprocedural examination
CPT/HCPCS: U0003

== ENCOUNTER → 2020-03-11 13:27 | Outpatient (BNVA) | payer MEDICARE, OTHER, SELFPAY | PROVIDERS: PCP Internal Medicine; Referring Provider Internal Medicine; Visit Provider Surgery | DX: C44.529 Squamous cell carcinoma of skin of other part of trunk (principal) | CPT/HCPCS: 11602; 99202; 99213 ==

== ENCOUNTER 2020-03-11 16:53 | Outpatient (REF) | payer MEDICARE, OTHER, SELFPAY ==
--- NOTE | 2020-03-11 14:10 | SKI_PTH ---
PATIENT: Brady Mckeon LOC: [facility] U#:[id number] AGE/SX: 74/M ROOM: RE03/11/[address]: Francisca Ortega : 1945 BED: DIS: 03/11/2020 SPEC #: [id number] RECD: 03/11/20 17:48 STATUS: JAVIER REQ #: [id number] MEGAN: 03/11/20 14:[address]: Francisca Ortega DEPT: Surgical Specimen RECD BY: Livier Loyd ENTERED: 03/11/20 17:49 SP TYPE: ROSE MARIE PETERS DR: Jitendra Whitfield Tissues: 1 - SKIN BIOPSY(SHAVE/PUNCH) Procedures: SKIN LEVEL 4 Comments: [id number] ([id number] [facility] [place]
== END 2020-03-11 17:13 ==
LOC: LBN 16:53
PROVIDERS: PCP Internal Medicine; Visit Provider Surgery
DX: L98.8 Other specified disorders of the skin and subcutaneous tissue (principal); C44.529 Squamous cell carcinoma of skin of other part of trunk
CPT/HCPCS: 88305

== ENCOUNTER 2020-03-25 04:06 | Outpatient (CLI) | payer MEDICARE, OTHER, SELFPAY ==
[2020-03-25 12:42] LABS: Ferritin 96 ng/mL (26-388)
== END 2020-03-25 04:26 ==
PROVIDERS: PCP Internal Medicine; Visit Provider Nurse Practitioner
DX: M25.561 Pain in right knee (principal); Z48.817 Encounter for surgical aftercare following surgery on the skin and subcutaneous tissue; C44.92 Squamous cell carcinoma of skin, unspecified
CPT/HCPCS: 36415; 82728

== ENCOUNTER → 2020-03-27 14:57 | Outpatient (BNVA) | payer MEDICARE, OTHER, SELFPAY | PROVIDERS: PCP Internal Medicine; Referring Provider Internal Medicine; Visit Provider Physical Therapy Assistant | DX: Z48.817 Encounter for surgical aftercare following surgery on the skin and subcutaneous tissue (principal); C44.92 Squamous cell carcinoma of skin, unspecified ==

== ENCOUNTER → 2020-03-31 14:23 | Outpatient (BNVA) | payer MEDICARE, OTHER, SELFPAY | PROVIDERS: PCP Internal Medicine; Referring Provider Internal Medicine; Visit Provider Internal Medicine Cardiovascular Disease | DX: I48.20 Chronic atrial fibrillation, unspecified (principal); Z79.01 Long term (current) use of anticoagulants; Z98.890 Other specified postprocedural states | CPT/HCPCS: 99214 ==

== ENCOUNTER → 2020-09-28 11:00 | Outpatient (BNVA) | payer MEDICARE, OTHER, SELFPAY | PROVIDERS: PCP Internal Medicine; Referring Provider Internal Medicine; Visit Provider Internal Medicine Cardiovascular Disease | DX: I48.20 Chronic atrial fibrillation, unspecified (principal) | CPT/HCPCS: 99213 ==

== ENCOUNTER → 2021-04-13 10:59 | Outpatient (BNVA) | payer MEDICARE, OTHER, SELFPAY | PROVIDERS: PCP Internal Medicine; Referring Provider Internal Medicine; Visit Provider Internal Medicine Cardiovascular Disease | DX: I48.21 Permanent atrial fibrillation (principal); Z79.01 Long term (current) use of anticoagulants | CPT/HCPCS: 99213 ==

== ENCOUNTER 2022-01-11 08:42 | Outpatient (CLI) | payer MEDICARE, SELFPAY ==
--- NOTE | 2022-01-11 08:30 | RT.EKG_ITS ---
APPROVED REPORT Exam: Resting ECG Reason for Exam: afib Patient Location: O HR:89 bpm ECG Measurements Heart Rate 89 AXIS ID [id number] P [id number] QRSd 143 QRS 56 QT 382 T -35 QTc 465 Conclusion Atrial fibrillation...V-rate 58-115, irreg A-activity Right bundle branch block...QRSd>120, terminal axis(90,270)
== END 2022-01-11 08:43 | disposition home or self-care (01) ==
LOC: DI.CARD 08:42
PROVIDERS: PCP Internal Medicine; Visit Provider Internal Medicine Cardiovascular Disease
DX: I48.21 Permanent atrial fibrillation (principal)
CPT/HCPCS: 93010

== ENCOUNTER → 2022-01-11 10:57 | Outpatient (BNVA) | payer MEDICARE, SELFPAY | PROVIDERS: PCP Internal Medicine; Referring Provider Internal Medicine; Visit Provider Internal Medicine Cardiovascular Disease | DX: I48.21 Permanent atrial fibrillation (principal); I45.10 Unspecified right bundle-branch block; R06.09 Other forms of dyspnea; Z79.01 Long term (current) use of anticoagulants | CPT/HCPCS: 93005; 99213 ==

== ENCOUNTER 2022-01-17 15:23 | Outpatient (REF) | payer MEDICARE, SELFPAY ==
[2022-01-17 19:34] LABS: HCT 48.2 % (40.0-50.0); HGB 16.2 g/dL (13.5-17.5); MCH 30.7 pg (27.0-33.0); MCHC 33.6 % (32.0-36.0); MCV 92 fL (80-95); MPV 11.5 fL (8.0-11.0); Platelet Count 192 10^3/uL (130-400); RBC 5.27 10^6/uL (4.36-5.78); RDW 13.6 % (11.8-14.1); RDW-SD 46.7 fL; WBC 8.18 10^3/uL (4.4-10.8)
[2022-01-17 19:57] LABS: ALT 33 U/L (16-63); AST 29 U/L (15-37); Albumin 3.6 g/dL (3.4-5.0); Alkaline Phosphatase 75 U/L (46-116); Anion Gap 10.1 mmol/L (3-11); BUN 18 mg/dL (7-18); Bilirubin, Total 0.6 mg/dL (0.2-1.0); CO2 23.9 mmol/L (21.0-32.0); Calcium 9.2 mg/dL (8.5-10.1); Chloride 105 mmol/L (98-107); Estimated GFR 78.49 (mL/min/1.73m2); Glucose 103 mg/dL (74-106); Sodium 139 mmol/L (136-145); Total Protein 7.6 g/dL (6.4-8.2)
[2022-01-19 10:39] LABS: Hepatitis C Ab w Rflx HCV PCR Negative (Negative)
== END 2022-01-17 15:24 | disposition home or self-care (01) ==
LOC: NCHCN 15:23
PROVIDERS: PCP Internal Medicine; Visit Provider Family Medicine
DX: I48.91 Unspecified atrial fibrillation (principal); Z00.00 Encounter for general adult medical examination without abnormal findings; Z11.59 Encounter for screening for other viral diseases
CPT/HCPCS: 80053; 85027; 86803

== ENCOUNTER → 2022-03-07 01:34 | Outpatient (CLI) | payer MEDICARE, SELFPAY ==
--- NOTE | 2022-03-07 | DI.RAD_ITS ---
Exam(s) XR KNEE RT 4V AP,LAT,BRANDON,PAT EXAM: XR KNEE RT 4V AP,LAT,BRANDON,PAT CLINICAL HISTORY: OA, M19.90. TECHNIQUE: 2D digital imaging was performed. Three views. COMPARISON: CR,XR XR TIB/FIB RT from 12/04/2019 FINDINGS: BONES: No acute fracture is present. No bony destructive lesion is seen. JOINTS: Moderate narrowing medial femoral tibial joint space. Mild spurring from the femoral condyle s and tibial plateaus as well as tibial spines and femoral intercondylar notch. Minimal spurring at the articular aspect of the patella. Patellofemoral joint space is well maintained. The knee is nor clari aligned. No joint effusion is seen. SOFT TISSUE: Normal. IMPRESSION: Moderate degenerative changes of the medial femoral tibial joint. DATA REPOSITORY: RADIATION DOSE DELIVERED:
== END ==
PROVIDERS: PCP Internal Medicine; Visit Provider Family Medicine
DX: M17.11 Unilateral primary osteoarthritis, right knee (principal)
CPT/HCPCS: 73564

== ENCOUNTER 2022-08-21 16:42 | Emergency (ER) | payer MEDICARE, SELFPAY ==
[2022-08-21 16:46] VITALS: BP 138/80; PULSE 74; RESP 15; TEMP 36.5; O2SAT 98
--- NOTE | 2022-08-21 16:59 | W.ED.GENAD ---
Discharge Plan Disposition Patient Disposition: Home Discharge Details Clinical Impression: Hx of falling, Laceration of right ear Primary Care Provider: Jitendra Whitfield ED Provider: Rizwan Perea Home Meds and New Rx's Prescriptions: Continued sildenafil [Viagra] 50 mg tablet 50 mg PO DAILY PRN (Reason: sexual activity) Qty: 10 3RF Rx Instructions: administer 30 minutes to 4 hours before activity metoprolol succinate 50 mg tablet extended release 24 hr 50 mg PO DAILY 30 Days Qty: 90 6RF Eliquis 5 mg tablet See Rx Instructions .ROUTE .COMPLEX Qty: 180 3RF Dose Instruction: TAKE 1 TABLET TWICE A DAY Rx Instructions: TAKE 1 TABLET TWICE A DAY diltiazem HCl 360 mg capsule,extended release 24hr See Rx Instructions .ROUTE .COMPLEX Qty: 90 3RF Dose Instruction: TAKE 1 CAPSULE DAILY Rx Instructions: TAKE 1 CAPSULE DAILY mesalamine [Asacol HD] 800 mg tablet,delayed release (DR/EC) 800 mg PO .6XPER DAY Discharge Instructions Additional Instructions: You were seen in the emergency department for your fall. You were found to have a laceration of your ear which was closed with sutures. Please follow-up with the ear nose and throat team later this week. The ENT team will call you. If you have any concerns about fevers please return to the emergency department. Medical Decision Making This is an overall well-appearing normothermic and not tachycardic 76-year-old male with fall on apixaban and head strike concerning for intracranial hemorrhage. We will obtain dry CT head. Tdap in chart from November 2019 so no indication for tetanus update. No preceding chest pain nor shortness of breath to suggest ACS nor PE. No hypoxia nor shortness of breath so doubt pneumothorax. No preceding dysuria nor frequency so doubt UTI. His CT head is reassuring will complete primary closure of the patient's right ear laceration with nonabsorbable sutures. 7 PM I asked health community outreach specialist Devante to have the patient's seen by ENT within the next 6 days for suture removal given involvement of perichondrium which was closed with absorbable sutures. HPI General Date/Time Provider Initiated Documentation: 08/21/22 16:59. HPI Narrative: This is a 76-year-old male on apixaban in the setting of atrial fibrillation now in the emergency department in the setting of a fall and laceration to his face that he obtained at approximately 4:15 PM this afternoon. Patient reports that he was coming in from the car carrying some milk and he tripped on some steps. He hit the edge of a bench with his head. He did not lose consciousness. He has not been vomiting. He denies any neck pain. He reports that he was in his usual state of health earlier today. He denies any preceding chest pain dizziness nausea and vomiting. Related Data Home Medications Medication Instructions Recorded Confirmed mesalamine 800 mg tablet,delayed 800 mg PO .6XPER DAY 10/01/19 08/21/22 release (Asacol HD) sildenafil 50 mg tablet (Viagra) 50 mg PO DAILY PRN sexual activity 03/31/20 08/21/22 #10 tabs metoprolol succinate 50 mg 50 mg PO DAILY 30 days #90 tabs 07/06/20 08/21/22 tablet,extended release 24 hr apixaban 5 mg tablet (Eliquis) See Rx Instructions .Route 09/06/21 08/21/22 .COMPLEX #180 tabs diltiazem HCl 360 mg See Rx Instructions .Route 06/03/22 08/21/22 capsule,extended release 24 hr .COMPLEX #90 caps Previous Rx's Medication Instructions Recorded sildenafil 50 mg tablet (Viagra) 50 mg PO DAILY PRN sexual activity 03/31/20 #10 tabs metoprolol succinate 50 mg 50 mg PO DAILY 30 days #90 tabs 07/06/20 tablet,extended release 24 hr apixaban 5 mg tablet (Eliquis) See Rx Instructions .Route 09/06/21 .COMPLEX #180 tabs diltiazem HCl 360 mg See Rx Instructions .Route 06/03/22 capsule,extended release 24 hr .COMPLEX #90 caps Allergies Allergy/AdvReac Type Severity Reaction Status Date / Time No Known Allergies Allergy Verified 08/21/22 16:50 General Stated Complaint: Laceration LANDON: 4 PFSH All Active Problems (Updated 08/21/22 @ 17:07 by Rizwan Perea MD) Hx of falling (Acute) Laceration of right ear (Acute) Squamous cell skin cancer (Acute) Dupuytren's contracture of both hands (Acute) With contracture of ring fingers B/L Atrial fibrillation (Chronic) Hip pain, right (Acute) Spinal stenosis of lumbar region with neurogenic claudication (Acute) Paroxysmal atrial fibrillation (Acute) Medical History Chest skin lesion Hx of adenomatous colonic polyps KATLYN (obstructive sleep apnea) Osteoarthritis right shoulder Seborrheic keratosis Ulcerative colitis Surgical History History of colonoscopy History of shoulder surgery Family History Other Cancer Heart disease Hypertension Social History Smoking/Tobacco Use Status: Never Smoking risk assessment performed?: Yes Drug use: Never Substance use type: does not use Do you feel safe at home: Yes Do you feel safe in your relationship?: Yes Exam Narrative Exam Narrative: General: Well-appearing in no acute distress speaking in complete sentences. Head: Normocephalic, atraumatic. Eye: Pupils equal, round reactive to light. Extraocular eye movements intact. No conjunctival injection. No scleral icterus. On the right ear at the helix and extending anteriorly into the antihelix there is an approximately 3 cm laceration with active bleeding. The laceration involves the perichondrium at the helix. Ear, nose, mouth, throat: Grossly normal inspection. Normal voice, handling secretions normally. Neck: Trachea midline. Cardiovascular: Well-perfused distal extremities. Respiratory: Nonlabored respiration. Gastrointestinal: Nondistended abdomen. Musculoskeletal: No edema. Moving all 4 extremities spontaneously. Skin: Normal for age and race, grossly normal temperature and turgor. No acute rash. Neurologic: Alert and appropriate, no apparent acute deficits. Psychiatric: Mood and manner are appropriate. Grooming and personal hygiene are appropriate. Course Vital Signs Vital signs: Vital Signs Temperature 36.5 C 08/21/22 16:46 Pulse 74 08/21/22 16:46 Respiratory Rate 15 08/21/22 16:46 Blood Pressure 138/80 08/21/22 16:46 Pulse Oximetry 98 08/21/22 16:46 Temperature 36.5 C 08/21/22 16:46 Temperature Source Oral 08/21/22 16:46 Pulse 74 08/21/22 16:46 Respiratory Rate 15 08/21/22 16:46 Respiratory Effort Normal 08/21/22 16:49 Blood Pressure 138/80 08/21/22 16:46 Blood Pressure Position Sitting 08/21/22 16:46 Pulse Oximetry 98 08/21/22 16:46 Oxygen Delivery Method Room Air 08/21/22 16:46 Oxygen Flow Rate 0 08/21/22 16:46 Pain Level 2 08/21/22 16:49 Procedures Laceration Laceration 1: Site: face (Right ear) Side (If applicable): right Size (cm): 3 Description: linear and clean Depth: [id number] (Involves perichondrium) Local Anesthetic: Lidocaine 1% Amount of anesthesia used (mL): 10 Skin layer closed with: other (6-0 Ethilon) Size (cm): 6-0 Number of sutures: 4 Technique: simple, interrupted Subcutaneous layer closed with: other (Monocryl) Size: 6-0 Number of sutures: 1 Technique: simple, interrupted PAWSS Have you Been Recently Intoxicated or Drunk Within the Last 30 days?: No Have you Ever Experienced Previous Episodes of Alcohol Withdrawal?: No Have you ever Experienced Withdrawal Seizures?: No Have you ever Experienced Delirium Tremens(DT)s?: No Have you ever undergone Alcohol Rehabilitation Treatment (i.e, inpt ot outpatient treatment programs)?: No Have you ever Experienced Blackouts?: No Have you ever Combined Alcohol with other Downers within the last 90 days?: No Have you ever Combined Alcohol with any other Substance of Abuse during the last 90 days?: No Result: 0
--- NOTE | 2022-08-21 17:00 | DI.CT_ITS ---
Exam(s) CT HEAD WO EXAM: CT HEAD WO CLINICAL HISTORY: On apixaban history of head strike. TECHNIQUE: Imaging Protocol: Axial computed tomography images with coronal and sagittal reformatted images were created and reviewed COMPARISON: No exams were available for comparison FINDINGS: Ventricles and Extra axial spaces: Normal in size and morphology for the patient's age. Hemorrhage: None. Cerebral parenchyma: No evidence of an acute territorial infarct. There are areas of decreased atten uation in the white matter likely reflecting small vessel ischemic disease. Midline shift: None. Brainstem/Cerebellum: Normal. Calvarium: Normal. Visualized Paranasal sinuses/Mastoids: Clear. Soft Tissues: Unremarkable. IMPRESSION: No acute intracranial process. RADIATION DOSE DELIVERED: 803.05mGy.cm Total DLP DATA REPOSITORY: All CT scans at this facility are submitted to the National Radiology Data Registry (NRDR) Dose Index Registry (DIR) with the [employer] (A[employer]). RADIATION OPTIMIZATION: All CT scans at this facility use at least one of these dose optimization te chniques: automated exposure control; mA and/or kV adjustment per patient size (includes targeted exa ms where dose is matched to clinical indication); or iterative reconstruction.
[2022-08-21] MEDS: Acetaminophen 500 MG TAB (17:19)
--- NOTE | 2022-08-21 18:00 | DI.VRAD_ITS ---
PROCEDURE INFORMATION: Exam: CT Head Without Contrast Exam date and time: 08/21/2022 5:37 PM Age: 76 years old Clinical indication: Other: On apixaban history of head strikes TECHNIQUE: Imaging protocol: Computed tomography of the head without contrast. COMPARISON: No relevant prior studies available. FINDINGS: Brain: Patel-white matter differentiation is within normal limits. There is no mass effect or midline shift. Mild nonspecific periventricular white matter hypodensity most likely due to chronic small vessel ischemic changes. Sulci and basal cisterns are mildly prominent due to parenchymal volume loss. There is no extra-axial fluid collection. Cerebral ventricles: No ventriculomegaly. Paranasal sinuses: Visualized sinuses are unremarkable. No fluid levels. Mastoid air cells: Visualized mastoid air cells are well aerated. Bones/joints: No acute fracture. Soft tissues: Unremarkable. IMPRESSION: 1. No acute intracranial abnormality. No mass effect or midline shift or acute intracranial hemorrhage. 2. Mild chronic small vessel ischemic changes. Dictated and Authenticated by: Demetrius Ledezma MD. Ordering:ROME Astorga MD
--- NOTE | 2022-08-22 09:51 | NUR.NOTE ---
Nursing Note: Referral faxed to [facility]NT for ear laceration; sutured in ED/by August 26.
== END 2022-08-21 19:29 | disposition home or self-care (01) ==
PROVIDERS: Emergency Provider Emergency Medicine; PCP Internal Medicine
DX: S01.311A Laceration without foreign body of right ear, initial encounter (principal); W01.190A Fall on same level from slipping, tripping and stumbling with subsequent striking against furniture, initial encounter
CPT/HCPCS: 12052; 99284; 70450; 99283

== ENCOUNTER → 2023-01-12 11:07 | Outpatient (BNVA) | payer MEDICARE, SELFPAY | PROVIDERS: PCP Family Medicine; Visit Provider Internal Medicine Cardiovascular Disease | DX: Z79.01 Long term (current) use of anticoagulants (principal); I48.0 Paroxysmal atrial fibrillation | CPT/HCPCS: 99213 ==

== ENCOUNTER → 2024-01-11 09:38 | Outpatient (BNVA) | payer MEDICARE, SELFPAY | PROVIDERS: PCP Family Medicine; Visit Provider Internal Medicine Cardiovascular Disease | DX: I48.0 Paroxysmal atrial fibrillation (principal) | CPT/HCPCS: 99213 ==

== ENCOUNTER 2024-01-23 13:27 | Outpatient (REF) | payer MEDICARE, SELFPAY ==
[2024-01-23 15:12] LABS: Abs Immature Grans 0.02 10^3/uL (0.0-0.06); Absolute Basophil Count 0.04 10^3/uL (0.0-0.2); Absolute Eosinophil Count 0.08 10^3/uL (0.0-0.7); Absolute Lymphocyte Count 2.05 10^3/uL (1.2-3.4); Absolute Monocyte Count 0.55 10^3/uL (0.1-0.8); Absolute Neutrophil Count 3.73 10^3/uL (1.2-6.7); Basophils % 0.6 %; Eosinophils % 1.2 %; HCT 47.2 % (40.0-50.0); HGB 15.9 g/dL (13.5-17.5); Immature Grans % 0.3 %; Lymphocytes % 31.7 %; MCH 31.3 pg (27.0-33.0); MCHC 33.7 % (32.0-36.0); MCV 93 fL (80-95); MPV 11.7 fL (8.0-11.0); Monocytes % 8.5 %; Neutrophils % 57.7 %; Platelet Count 167 10^3/uL (130-400); RBC 5.08 10^6/uL (4.36-5.78); RDW 13.9 % (11.8-14.1); RDW-SD 48.1 fL; WBC 6.47 10^3/uL (4.4-10.8)
[2024-01-23 15:41] LABS: ALT 29 U/L (16-63); AST 24 U/L (15-37); Albumin 3.6 g/dL (3.4-5.0); Alkaline Phosphatase 74 U/L (46-116); Anion Gap 10.5 mmol/L (3-11); BUN 19 mg/dL (7-18); Bilirubin, Total 0.77 mg/dL (0.2-1.0); CO2 25.5 mmol/L (21.0-32.0); CREATININE 1.1 mg/dL (0.70-1.30); Calcium 9.4 mg/dL (8.5-10.1); Calculated LDL 121 mg/dL (<100); Chloride 105 mmol/L (98-107); Cholesterol 206 mg/dL (<200); Estimated GFR 69.14 (mL/min/1.73m2); Glucose 94 mg/dL (74-106); HDL Cholesterol 63 mg/dL (40-60); Potassium 4.1 mmol/L (3.5-5.1); Sodium 141 mmol/L (136-145); Total Protein 7.1 g/dL (6.4-8.2); Triglyceride 113 mg/dL (<150)
== END 2024-01-23 13:28 | disposition home or self-care (01) ==
LOC: NCHCN 13:27
PROVIDERS: PCP Family Medicine; Visit Provider Family Medicine
DX: Z00.00 Encounter for general adult medical examination without abnormal findings (principal); I48.91 Unspecified atrial fibrillation
CPT/HCPCS: 80053; 80061; 85025

== ENCOUNTER 2025-01-09 07:56 | Outpatient (CLI) | payer MEDICARE, SELFPAY ==
--- NOTE | 2025-01-09 07:45 | RT.EKG_ITS ---
APPROVED REPORT Exam: Resting ECG Reason for Exam: afib Patient Location: O HR:88 bpm ECG Measurements Heart Rate 88 AXIS CO [id number] P [id number] QRSd 148 QRS 66 QT 373 T -25 QTc 452 Conclusion Atrial fibrillation...V-rate 67-113, irreg A-activity Right bundle branch block...QRSd>120, terminal axis(90,270)
== END 2025-01-09 07:57 | disposition home or self-care (01) ==
LOC: DI.CARD 07:56
PROVIDERS: PCP Family Medicine; Visit Provider Internal Medicine Cardiovascular Disease
DX: I48.21 Permanent atrial fibrillation (principal); I45.10 Unspecified right bundle-branch block
CPT/HCPCS: 93010

== ENCOUNTER → 2025-01-09 09:54 | Outpatient (BNVA) | payer MEDICARE, SELFPAY | PROVIDERS: PCP Family Medicine; Referring Provider Family Medicine; Visit Provider Internal Medicine Cardiovascular Disease | DX: I48.21 Permanent atrial fibrillation (principal) | CPT/HCPCS: 99214; 93005 ==

== ENCOUNTER 2025-01-27 14:29 | Outpatient (REF) | payer MEDICARE, SELFPAY ==
[2025-01-27 16:18] LABS: HCT 47.7 % (40.0-50.0); HGB 15.7 g/dL (13.5-17.5); MCH 31.0 pg (27.0-33.0); MCHC 32.9 % (32.0-36.0); MCV 94 fL (80-95); MPV 11.3 fL (8.0-11.0); Platelet Count 185 10^3/uL (130-400); RBC 5.06 10^6/uL (4.36-5.78); RDW 14.1 % (11.8-14.1); RDW-SD 49.1 fL; WBC 5.98 10^3/uL (4.4-10.8)
[2025-01-27 16:38] LABS: ALT 35 U/L (16-63); AST 28 U/L (15-37); Albumin 3.8 g/dL (3.4-5.0); Alkaline Phosphatase 80 U/L (46-116); Anion Gap 9.2 mmol/L (3-11); BUN 19 mg/dL (7-18); Bilirubin, Total 0.8 mg/dL (0.2-1.0); CO2 27.8 mmol/L (21.0-32.0); Calcium 9.3 mg/dL (8.5-10.1); Chloride 107 mmol/L (98-107); Estimated GFR 68.71 (mL/min/1.73m2); Glucose 93 mg/dL (74-106); Potassium 4.2 mmol/L (3.5-5.1); Sodium 144 mmol/L (136-145); Total Protein 7.0 g/dL (6.4-8.2)
== END 2025-01-27 14:30 | disposition home or self-care (01) ==
LOC: NCHCN 14:29
PROVIDERS: PCP Family Medicine; Visit Provider Family Medicine
DX: I48.91 Unspecified atrial fibrillation (principal); I45.10 Unspecified right bundle-branch block
CPT/HCPCS: 80053; 85027